=== PATIENT | male | born 1940 | race Caucasian/White ===

== ENCOUNTER → 2016-07-17 | Outpatient (CLI) | payer MEDICARE, BC ==
[~2016-07-17] MED LIST: 00186-0370-20 IH; 00186-0372-20 IH; ALDACTONE 25MG25 M1 PO; ALPRAZOLAM0.25 M1 PO; APRESOLINE 25MG25 MG PO; ASPIR-LOW81 MG PO; ASPIRIN E.C. 8181 MG PO; AZITHROMYCIN250 MG PO; B-121000 MCG PO; BUMEX2 MG PO; BUPROBAN150 MG PO; BUPROPION HCL75 MG PO; BUPROPION75 MG PO; CALAN SR240 MG PO; CARDI-OMEGA1000 MG PO; CLARITIN; CLOPIDOGREL PO; COUMADIN 5MG5 MG/TAB PO; COUMADIN4 MG PO; CRESTOR 10MG10 MG PO; FERRATE325 MG PO; FERROUS SU325 MG/TAB PO; FISH OIL CONC1000 MG PO; FOLIC ACID 11 MG/TA1 PO; IMDUR 30MG30 MG/TAB PO; JANTOVEN4 MG PO; K-DUR 10 MEQ T10 MEQ PO; KLOR-CON M2020 MEQ PO; LASIX 20MG TABL20 MG PO; LASIX20 MG PO; LOPRESSOR 225 MG/TAB PO; MASON NATURAL1200 MG PO; METOPROLOL25 MG PO; NATURAL E400 IU PO; NATURAL IRON65 MG PO; NATURAL VITAM1000 MG PO; NEXIUM40 MG PO; NORVASC 5MG5 MG/TAB PO; PLAVIX 75MG TAB75 MG PO; PREDNISONE20 MG PO; PROVENTIL0.09 MG/A1 IH; TMG; TOPROL XL 25MG25 MG PO; VIT C; VITAMIN C BUFF500 MG PO; VITAMIN C PUR1000 MG PO; VITAMIN C500 MG PO; VITAMIN D PO; VITAMIN D1000 IU PO; VITAMIN D31000 IU PO; VITAMIN E-400200 IU PO; VYTORIN 10 MG-41 TAB PO; VYTORIN 10 MG-81 TAB PO; VYTORIN PO; WARFARIN SODIU7.5 MG PO; WARFARIN4 MG PO; WELLBUTRIN 75MG75 MG PO; XANAX .25M0.25 MG/TA PO; XANAX 1MG1 MG PO; ZETIA 10MG TAB10 MG PO; ZOVIRAX800 MG PO; [UNRECOGNIZED DRUG - OTHER] PO
[2016-07-17 17:06] LABS: CALCIUM 9.8 mg/dL (8.4-10.2); CREATININE, serum 1.11 mg/dL (0.66-1.25); POTASSIUM 4.8 mmol/L (3.4-5.0)
== END ==
LOC: COL.RAD 16:30
PROVIDERS: Internal Medicine Cardiovascular Disease
DX: I51.7 Cardiomegaly (principal); J90 Pleural effusion, not elsewhere classified; I50.22 Chronic systolic (congestive) heart failure; Z95.0 Presence of cardiac pacemaker

== ENCOUNTER → 2016-12-11 | Outpatient (CLI) | payer MEDICARE, BC | LOC: COL.RAD 12:40 | DX: J44.9 Chronic obstructive pulmonary disease, unspecified (principal); J96.11 Chronic respiratory failure with hypoxia; J98.4 Other disorders of lung; I50.22 Chronic systolic (congestive) heart failure; Z98.890 Other specified postprocedural states; Z95.2 Presence of prosthetic heart valve; Z86.79 Personal history of other diseases of the circulatory system ==

== ENCOUNTER 2016-12-27 20:31 | Outpatient (RCR) | payer MEDICARE, BC ==
[2016-12-26 17:31] VITALS: BP 111/69; PULSE 75; TEMP 97.7
[~2016-12-27] VITALS: Ht 180.3 cm; Wt 74.0 kg
[2016-12-27 08:17] VITALS: BP 115/54; PULSE 70; TEMP 97.2
[2016-12-27 20:39] VITALS: BP 131/59; PULSE 75; TEMP 97.9
== END 2016-12-29 18:25 | disposition home or self-care (01) ==
LOC: EUO 12-28 07:30
DX: I35.9 Nonrheumatic aortic valve disorder, unspecified (principal); Z79.899 Other long term (current) drug therapy
CPT/HCPCS: J1650

== ENCOUNTER 2017-02-08 08:30 | Emergency (ER) | payer MEDICARE, BC ==
[~2017-02-08] VITALS: Ht 180.3 cm; Wt 78.2 kg
[2017-02-08 08:31] VITALS: TEMP 97.4
[2017-02-08 09:11] LABS: BASO % 0.1 % (0.0-2.0); GRAN # 10.5 (1.4-6.5); GRAN % 86.3 % (42.2-75.2); LYMPH # 0.7 (1.2-3.4); LYMPH % 5.5 % (20.0-51.0); MEAN CELL VOLUME 103 fl (80.0-100.0); MEAN CORPUSCULAR HGB CONC 32 g/dl (33.0-37.0); MEAN PLATELET VOLUME 9.1 fl (7.4-10.4); MONO # 0.9 (0.1-0.6); MONO % 7.3 % (1.7-9.3); PLATELET COUNT 354 K/mm3 (130-400); RED BLOOD COUNT 2.98 M/mm3 (4.20-5.60); REDCELL DISTRIBUTION WIDTH-CV 16.7 % (11.5-14.5); WHITE BLOOD COUNT 12.1 K/mm3 (4.8-10.8)
[2017-02-08 09:12] LABS: HEMATOCRIT 30.7 % (42.0-52.0); HEMOGLOBIN 9.8 g/dl (13.5-18.0); MEAN CORPUSCULAR HEMOGLOBIN 33 pg (27.0-31.0)
[2017-02-08 09:24] LABS: ADJUSTED CALCIUM 9.2 mg/dL (8.4-10.2); ALBUMIN 3.9 gm/dL (3.5-5.0); BILIRUBIN,TOTAL 0.6 mg/dL (0.0-1.0); CALCIUM 9.1 mg/dL (8.4-10.2); CREATININE, serum 1.28 mg/dL (0.66-1.25); POTASSIUM 4.1 mmol/L (3.4-5.0); TOTAL PROTEIN 7.7 gm/dL (6.4-8.2)
[2017-02-08 09:31] LABS: INR 2.3 (0.8-3.0); PROTHROMBIN TIME 26.4 SECONDS (9.7-12.8)
[2017-02-08 09:34] LABS: PARTIAL THROMBOPLASTIN TIME 32.2 SECONDS (26.0-37.0)
[2017-02-08 09:35] LABS: TROPONIN-I 0.031 ng/mL (0.000-0.034)
[2017-02-08 10:17] LABS: PH 5 (5-8); SQUAMOUS EPITHELIAL None Seen /hpf; URINE APPEARANCE Clear; URINE BACTERIA None Seen /hpf; URINE BILIRUBIN Negative (NEGATIVE); URINE BLOOD Negative (NEGATIVE); URINE COLOR Yellow; URINE GLUCOSE Negative (NEGATIVE); URINE KETONE 1+ (NEGATIVE); URINE RBC 0-2 /hpf; URINE UROBILINOGEN Negative (NEGATIVE); URINE WBC 0-2 /hpf
[2017-02-08 11:33] VITALS: BP 129/62; PULSE 78
== END 2017-02-08 11:30 | disposition short-term general hospital (02) ==
LOC: COL.ER 08:30
PROVIDERS: Emergency Medicine
DX: S72.002A Fracture of unspecified part of neck of left femur, initial encounter for closed fracture (principal); J90 Pleural effusion, not elsewhere classified; J18.8 Other pneumonia, unspecified organism; J44.9 Chronic obstructive pulmonary disease, unspecified; I25.10 Atherosclerotic heart disease of native coronary artery without angina pectoris; I50.9 Heart failure, unspecified; I10 Essential (primary) hypertension; E78.00 Pure hypercholesterolemia, unspecified; Z87.891 Personal history of nicotine dependence; Z98.890 Other specified postprocedural states; W01.0XXA Fall on same level from slipping, tripping and stumbling without subsequent striking against object, initial encounter; Y92.009 Unspecified place in unspecified non-institutional (private) residence as the place of occurrence of the external cause
CPT/HCPCS: J0696; J1170; J2405

== ENCOUNTER → 2017-02-23 | Outpatient (REF) ==
[2017-02-23 12:24] LABS: MEAN CELL VOLUME 103 fl (80.0-100.0); MEAN CORPUSCULAR HGB CONC 31 g/dl (33.0-37.0); MEAN PLATELET VOLUME 9.5 fl (7.4-10.4); PLATELET COUNT 657 K/mm3 (130-400); RED BLOOD COUNT 3.32 M/mm3 (4.20-5.60)
[2017-02-23 12:27] LABS: HEMATOCRIT 34.1 % (42.0-52.0); HEMOGLOBIN 10.4 g/dl (13.5-18.0); MEAN CORPUSCULAR HEMOGLOBIN 31 pg (27.0-31.0)
[2017-02-23 12:30] LABS: CALCIUM 9.6 mg/dL (8.4-10.2); CREATININE, serum 0.93 mg/dL (0.66-1.25); POTASSIUM 4.5 mmol/L (3.4-5.0)
[2017-02-23 12:42] LABS: BAND 7 % (0-10); EOSINOPHIL 2 % (0-4); LYMPHOCYTE 18 % (20.0-51.0); METAMYELOCYTE 1 % (0-0); MYELOCYTE 1 % (0-0); NEUTROPHILS 70 % (42.0-75.2); PLATELET ESTIMATE INCREASED (NORMAL)
== END ==
LOC: ZCOL.LAB 11:55
PROVIDERS: Internal Medicine
DX: Z01.89 Encounter for other specified special examinations (principal)

== ENCOUNTER → 2017-04-13 | Outpatient (CLI) | payer MEDICARE, BC | LOC: COL.RAD 16:18 | DX: J90 Pleural effusion, not elsewhere classified (principal); Z79.899 Other long term (current) drug therapy; R91.8 Other nonspecific abnormal finding of lung field ==